=== PATIENT | female | born 1985 | race Caucasian/White ===

== ENCOUNTER → 2017-01-14 | Outpatient (CLI) | payer BC ==
[2017-01-14 10:57] LABS: CH 32.9; CHCM 34.8; HCT 38.3 % (34.0-46.0); HDW 2.55; MCH 32.4 pg (25.0-35.0); MCHC 34.1 g/dL (31.0-37.0); Mean Platelet Volume 8.2; RBC 4.03 m/uL (3.80-5.40); RDW 12.9 % (11.5-15.5); WBC 8.5 k/uL (3.8-10.6)
== END ==
LOC: LABWHC1 09:47
PROVIDERS: ATTEND Obstetrics & Gynecology
DX: Z34.92 Encounter for supervision of normal pregnancy, unspecified, second trimester (principal); Z3A.00 Weeks of gestation of pregnancy not specified
CPT/HCPCS: 36415; 82950; 85027

== ENCOUNTER → 2017-02-11 | Outpatient (CLI) | payer BC ==
--- NOTE | 2017-02-11 12:06 | US ---
EXAMINATION TYPE: US OB anatomy transabd DATE OF EXAM: 02/11/2017 10:40 AM COMPARISON: NONE HISTORY: LGA TECHNIQUE: Transabdominal (TA) EXAM MEASUREMENTS: GESTATIONAL AGE / DATING Physician Established: (32 weeks/4 days) EDC: 04/04/17 Dates by LMP: Unknown Dates by First Scan: Not available Dates by Current Scan for: (31 weeks/3 days) EDC: 04/12/2017 SURVEY IUP: Single PLACENTA: Posterior PREVIA: No previa JEAN PAUL: 10.6 cm Normal CERVICAL LENGTH (transabdominal: norm > 3.0cm): 3.0 cm BIOMETRY PRESENTATION: Vertex BPD: 8.1 cm 32 weeks / 4 days HC: 29.6 cm 32 weeks / 5 days AC: 27.2 cm 31 weeks / 2 days FL: 5.9 cm 31 weeks / 1 days ESTIMATED WEIGHT IN GRAMS: 1768 grams ESTIMATED WEIGHT IN LBS/OZS: 3 lbs. 14 oz. WEIGHT PERCENTAGE BASED ON ESTABLISHED DATE: 12 % HC/AC: 1.1 FL/AC: 21.9 HEART RATE: 143 bpm RHYTHM: Normal JEAN PAUL measures 10.6 ANATOMY SEEN (within normal limits): Cavus Septi Pellucidi Four Chamber Heart Stomach Situs Diaphragm Kidneys (bilateral) Bladder Longitudinal Spine Transverse Spine ANATOMY NOT SEEN: due to position/calcification of bone * Lateral Vent (< 1 cm) cm * Cisterna Magna (< 1.1 cm) cm * Nuchal Fold (< 0.6 cm) cm * Cerebellum (varies with age) cm Choroid Plexus (bilateral) Midline Falx Arms (bilateral) Legs (bilateral) Cord Insert Three Vessel Cord Outflow tracts: LVOT/RVOT Nose / Lips IMPRESSION: Findings compatible with a 31 week 3 day with an EDC of 04/12/2017 Limited assessment of internal anatomy due to advanced gestational age.
== END | disposition home or self-care (01) ==
LOC: RADUSWWP 09:42
PROVIDERS: ATTEND Obstetrics & Gynecology
DX: O36.63X0 Maternal care for excessive fetal growth, third trimester, not applicable or unspecified (principal); Z3A.31 31 weeks gestation of pregnancy
CPT/HCPCS: 76811

== ENCOUNTER 2017-03-15 08:00 | Outpatient (CLI) | payer BC ==
[2017-03-15 08:49] VITALS: BP 131/80; PULSE 76; RESP 20; TEMP 96.2
--- NOTE | 2017-03-16 10:31 | P.MSEPDOC ---
Presenting Problems - Arrival Data Date of Arrival on Unit: 03/15/17 Time of Arrival on Unit: 08:00 Mode of Transport: Ambulatory - Complaint OB-Reason for Admission/Chief Complaint: Possible Onset of Labor Medical History - Information : 3 Para: 2 Term: 2 : 0 Abortions: Spontaneous or Elective: 0 Number of Living Children: 2 - Gestational Age Expected Date of Delivery: 04/04/17 Gestational Age by BINA (wks/days): 37 Weeks and 2 Days Review of Systems - Review of Systems Constitutional: No problems Breast: No problems ENT: No problems Cardiovascular: No problems Respiratory: No problems Gastrointestinal: No problems Genitourinary: No problems Musculoskeletal: No problems Neurological: No problems Skin: No problems Vital Signs - Temperature Temperature: 96.2 F Temperature Source: Skin - Pulse Brachial Pulse Rate: 76 Pulse Assessment Method: Automatic Cuff - Respirations Respiratory Rate: 20 Oxygen Delivery Method: Room Air O2 Sat by Pulse Oximetry: 100 - Blood Pressure Right Arm Blood Pressure: 131/80 Blood Pressure Mean: 97 Blood Pressure Source: Automatic Cuff Medical Screen Scoring (Pre) - Cervical Exam Dilation: 1-3 cm = 1 Effacement: More than 50% = 2 Membranes: Intact - Uterine Contractions Frequency: > 5 minutes apart = 1 Duration: > 40 seconds = 2 - Maternal Vital Signs Maternal Temperature: N/A Maternal Blood Pressure: N/A Signs of Preeclampsia: N/A Maternal Respirations: N/A - Maternal Trauma Maternal Trauma: N/A - Assessment Baseline FHR: 130 Heart Rate - NICHD Category: Category I (Normal) = 0 NST: Reactive - Total Score Total Score (Pre): 6 - Level of Risk Level of Risk: Low (0-5) Physician Notification (Pre) - Physician Notified Physician Notified Date: 03/15/17 Physician Notified Time: 09:04 Physician/Practitioner Notifed:: Dr nichole Spoke With: Dr nichole - Notification Comment Comment: Recheck in 1 hour and if no change may discharge home with instructions Medical Screen Scoring (Post) - Post Treatment Level of Risk Post Treatment Level of Risk: Low (0-5) Disposition - Disposition OB Disposition: Triage, Discharge to home, Written follow up instructions reviewed Discharge Date: 03/15/17 Discharge Time: 09:50 I agree with the RN Medical Screening Exam: Yes Risk & Benefit of care provided described in d/c instruction: Yes Diagnosis: FALSE LABOR AT OR AFTER 37 COMPLETED WEEKS OF GESTATION
== END 2017-03-15 09:50 | disposition home or self-care (01) ==
LOC: FBPOP 08:00
PROVIDERS: ATTEND Obstetrics & Gynecology
DX: O47.1 False labor at or after 37 completed weeks of gestation (principal); Z3A.37 37 weeks gestation of pregnancy
CPT/HCPCS: 59025; 84112; 99213

== ENCOUNTER 2017-03-16 11:26 | Inpatient (IN) | payer BC ==
[2017-03-16 12:26] VITALS: BMI 28.7
[2017-03-16] MEDS ORDERED: TERBUTALINE 1 MG/ML VIAL SQ PRN (12:28)
[2017-03-16] MEDS ORDERED: METHYLERGONOVINE 0.2 MG/ML 1 ML AMP IM PRN (12:28)
[2017-03-16] MEDS ORDERED: OXYTOCIN 10 UNIT/ML 1 ML VIAL IM PRN (12:28)
[2017-03-16] MEDS ORDERED: LIDOCAINE 1% (PF) 10 MG/ML (30 ML SDV) SQ PRN (12:28)
[2017-03-16] MEDS ORDERED: CARBOPROST TROMETHAMINE 250 MCG/ML 1 ML AMP IM PRN (12:28)
[2017-03-16] MEDS ORDERED: LACTATED RINGERS 1,000 ML IV SCH (12:30)
[2017-03-16] MEDS ORDERED: CLINDAMYCIN 900 MG in DEXTROSE 5% IN WATER 50 ML IVPB STA ×2 (12:33)
[2017-03-16 12:50] LABS: Basophils % (A) 0 %; CH 32.7; CHCM 34.9; Eosinophils % (A) 0 %; HCT 42.7 % (34.0-46.0); HDW 2.43; HGB 14.8 gm/dL (11.4-16.0); Luc % (Auto) 1; Lymphocytes # (A) 1.9 k/uL (1.0-4.8); Lymphocytes % (A) 19 %; MCH 32.6 pg (25.0-35.0); MCHC 34.6 g/dL (31.0-37.0); MCV 94.2 fL (80.0-100.0); Mean Platelet Volume 8.1; Monocytes # (A) 0.4 k/uL (0-1.0); Monocytes % (A) 4 %; Neutrophils # (A) 7.2 k/uL (1.3-7.7); Neutrophils % (A) 75 %; RBC 4.54 m/uL (3.80-5.40); RDW 13.2 % (11.5-15.5); WBC 9.6 k/uL (3.8-10.6); WBC (Perox) 9.58
[2017-03-16] MEDS ORDERED: fentaNYL (PF) 50 MCG/ML 5 ML AMP ONE (13:06)
[2017-03-16] MEDS ORDERED: BUPIVACAINE (PF) 0.25% 30 ML VIAL ONE (13:06)
[2017-03-16] MEDS ORDERED: SODIUM CHLORIDE 0.9% 100 ML BAG ONE (13:06)
--- NOTE | 2017-03-16 13:49 | P.HPOB ---
History of Present Illness H&P Date: 03/16/17 Chief Complaint: Rupture membranes, contractions This is a 31-year-old female 3 para 2 with an estimated date of confinement of 04/04/2017, estimated gestational age of 37 and one sevenths weeks, who presents to labor and delivery with complaints of a gush of clear fluid at approximately 9:30 AM this morning with continued gushing after that. She also complains of contractions since yesterday that have become stronger and more regular at approximate 5-6 minutes. care has been with Dr. Hurd and has been uncomplicated. labs: GC/chlamydia-negative HIV-nonreactive Syphilis antibody-nonreactive Random glucose-78 Hepatitis B surface antigen-negative Hemoglobin-13.7 Rubella-immune Blood type-O+ Antibody screen-negative Anatomy scan-within normal limits One hour Glucola-112 Group B streptococcus-unknown, just performed on Friday Obstetrical history: . History of 2 vaginal deliveries at term without complications. Review of Systems Constitutional: Denies chills, Denies fever Cardiovascular: Denies chest pain, Denies shortness of breath Respiratory: Reports as per HPI Gastrointestinal: Reports abdominal pain (Contractions) Genitourinary: Reports , Reports vaginal discharge (Gush of fluid) Neurological: Denies numbness, Denies weakness Psychiatric: Denies anxiety, Denies depression Past Medical History Past Medical History: No Reported History History of Any Multi-Drug Resistant Organisms: None Reported Past Surgical History: No Surgical Hx Reported Past Anesthesia/Blood Transfusion Reactions: No Reported Reaction Past Psychological History: No Psychological Hx Reported Smoking Status: Never smoker Past Alcohol Use History: None Reported Past Drug Use History: None Reported - Past Family History Mother Family Medical History: Hypertension, Seizure Disorder Medications and Allergies Home Medications Medication Instructions Recorded Confirmed Type Pnv with Ca,No.72/Iron/FA [Pnv 1 tab PO DAILY 03/11/17 03/15/17 History Plus Multivit Tab] Allergies Allergy/AdvReac Type Severity Reaction Status Date / Time amoxicillin [From Augmentin] Allergy Rash/Hives Verified 03/15/17 08:31 clavulanic acid Allergy Rash/Hives Verified 03/15/17 08:31 [From Augmentin] Exam Osteopathic Statement: *. No significant issues noted on an osteopathic structural exam other than those noted in the History and Physical/Consult. - Vital Signs Vital signs: Vital Signs Temp Pulse Resp BP 03/16/17 12:15 97.3 F L 76 16 123/79 Intake and Output 03/15/17 03/16/17 03/16/17 22:59 06:59 14:59 Other: Weight 68.946 kg Patient Weight 03/17/17 06:59 Weight 68.946 kg HEENT: Within normal limits Heart: Regular rate and rhythm Lungs: Clear to auscultation bilaterally Abdomen: Cervix: On admission, 4-5 cm/80%/-2 station Amnisure: Positive, clear fluid noted heart tones: Reactive Contractions: Every 3-5 minutes Extremities: Negative Homans Results Result Diagrams: 03/16/17 12:35 Assessment and Plan (1) 37 weeks gestation of Status: Acute (2) Spontaneous rupture of membranes Status: Acute Plan: Admission for active labor. Epidural anesthesia if desired. We'll give antibiotic prophylaxis secondary to unknown group B streptococcus.
--- NOTE | 2017-03-16 16:49 | P.PROBDLV ---
Vaginal Delivery Note - . Vaginal Delivery Note: The patient progressed to complete dilation after epidural anesthesia. She was noted have before back that was also ruptured at approximate 9 cm with clear fluid. She pushed for a short while and infant's head came to a crown and then delivered across an intact perineum followed by the anterior shoulder. Nose and mouth were bulb suctioned at the perineum and with one further push the remainder the infant easily delivered and was placed on mother's abdomen. A viable male infant was noted with scores of 8 at 1 minute and 9 at 5 minutes and weight pending at this time. Placenta delivered shortly thereafter, intact, with a three-vessel cord. Uterus contracted well after oxytocin was given and uterine massage was carried out. Inspection of the perineum revealed no perineal lacerations. Estimated blood loss is approximately 150 mL's. Both mother and are in stable condition.
[2017-03-16] MEDS ORDERED: Acetaminophen-Codeine 300-30mg TAB PO PRN ×2 (17:12)
[2017-03-16] MEDS ORDERED: diphenhydrAMINE 50 MG CAP PO PRN (17:12)
[2017-03-16] MEDS ORDERED: ZOLPIDEM 5 MG TAB PO PRN (17:12)
[2017-03-16] MEDS ORDERED: LANOLIN CREAM 5 GM TUBE TOPICAL PRN (17:12)
[2017-03-16] MEDS ORDERED: WITCH HAZEL 1 EACH MED..PAD TOPICAL PRN (17:12)
[2017-03-16] MEDS ORDERED: diphenhydrAMINE 25 MG CAP PO PRN (17:12)
[2017-03-16] MEDS ORDERED: OXYTOCIN 30 UNITS/500 ML NS 30 UNIT in SALINE 1 500ML.BAG IV SCH (17:12)
[2017-03-16] MEDS ORDERED: SIMETHICONE 80 MG CHEWABLE PO PRN (17:12)
[2017-03-16] MEDS ORDERED: diphenhydrAMINE 50 MG/ML 1 ML VIAL IVP PRN ×2 (17:12)
[2017-03-16] MEDS ORDERED: BENZOCAINE/MENTHOL SPRAY 1 GM/SPRAY AEROSOL TOPICAL PRN (17:12)
[2017-03-16] MEDS ORDERED: ACETAMINOPHEN TAB 325 MG TAB PO PRN (17:12)
[2017-03-16] MEDS ORDERED: HYDROCORTISONE 2.5% RECTAL CREAM 30 GM TUBE RECTAL PRN (17:12)
[2017-03-16] MEDS ORDERED: CLINDAMYCIN 900 MG in DEXTROSE 5% IN WATER 50 ML IVPB SCH ×2 (21:00)
[2017-03-16] MEDS: SENNOSIDES-DOCUSATE SODIUM 1 EACH TAB PO SCH (21:43)
[2017-03-17] MEDS: IBUPROFEN 600 MG TAB PO PRN ×2 (05:54→13:51)
[2017-03-17] MEDS: SENNOSIDES-DOCUSATE SODIUM 1 EACH TAB PO SCH (08:21)
[2017-03-17 08:35] VITALS: BP 104/70; PULSE 76; RESP 18; TEMP 96.9
[2017-03-17 08:48] LABS: Basophils % (A) 0 %; CH 33.7; Eosinophils % (A) 0 %; HCT 40.9 % (34.0-46.0); HDW 2.51; HGB 14.4 gm/dL (11.4-16.0); Luc # (Auto) 0.09; Luc % (Auto) 1; Lymphocytes % (A) 20 %; MCH 32.3 pg (25.0-35.0); MCHC 35.3 g/dL (31.0-37.0); MCV 91.5 fL (80.0-100.0); Mean Platelet Volume 8.5; Monocytes # (A) 0.5 k/uL (0-1.0); Monocytes % (A) 5 %; Neutrophils # (A) 7.6 k/uL (1.3-7.7); Neutrophils % (A) 74 %; RBC 4.47 m/uL (3.80-5.40); WBC 10.2 k/uL (3.8-10.6); WBC (Perox) 9.97
--- NOTE | 2017-03-17 09:11 | P.DS ---
Providers Date of admission: 03/16/17 11:55 Expected date of discharge: 03/17/17 Attending physician: Amarilis Salgado Primary care physician: Stated None Hospital Course: Any seen and evaluated day 1. She is ambulating, voiding, and she is tolerating her diet well. She voices no complaints and requests discharged home today. Prescription for Tylenol 3 and Motrin has been provided. Discharge instructions thoroughly reviewed and all questions are answered. Vital signs are otherwise stable and she is afebrile. Heart regular , lungs clear, extremities without pain. Abdomen soft uterus is firm lochia is reported be light. Assessment day 1. Plan discharged home follow up with me in 6 weeks Patient Condition at Discharge: Good Plan - Discharge Summary New Discharge Prescriptions: Acetaminophen-Codeine 300-30mg [Tylenol #3] 1 tab PO Q4H PRN #30 tablet PRN Reason: Pain Ibuprofen [Motrin] 600 mg PO Q6HR PRN #30 tab PRN Reason: Pain Discharge Medication List Pnv with Ca,No.72/Iron/FA [Pnv Plus Multivit Tab] 1 tab PO DAILY [History] Acetaminophen-Codeine 300-30mg [Tylenol #3] 1 tab PO Q4H PRN #30 tablet [Rx] Ibuprofen [Motrin] 600 mg PO Q6HR PRN #30 tab 03/17/17 [Rx] Follow up Appointment(s)/Referral(s): Bishnu Hurd DO [Doctor of Osteopathic Medicine] - 1 Week Activity/Diet/Wound Care/Special Instructions: Heavy lifting, limit stairs and driving and pelvic rest. If any high temperatures, heavy bleeding, or severe pain call my office Discharge Disposition: HOME SELF-CARE
== END 2017-03-17 16:56 | disposition home or self-care (01) | DRG 775 ==
LOC: FBPOP 11:26 → 4FBP 11:55
PROVIDERS: ADMIT Obstetrics & Gynecology; ATTEND Obstetrics & Gynecology
PROC: 10E0XZZ Delivery of Products of Conception, External Approach (ICD-10-PCS; principal; 2017-03-16)
PROC: 3E0S3NZ Introduction of Analgesics, Hypnotics, Sedatives into Epidural Space, Percutaneous Approach (ICD-10-PCS; 2017-03-16)
DX: O80 Encounter for full-term uncomplicated delivery (principal); Z88.0 Allergy status to penicillin; Z37.0 Single live birth; Z3A.37 37 weeks gestation of pregnancy; Z82.0 Family history of epilepsy and other diseases of the nervous system; Z82.49 Family history of ischemic heart disease and other diseases of the circulatory system; Z88.1 Allergy status to other antibiotic agents
CPT/HCPCS: 59025; 84112; 85025; 88307; 99213

== ENCOUNTER 2020-01-25 10:21 | Outpatient (CLI) | payer BC ==
[2020-01-25 11:44] VITALS: BP 119/72; PULSE 94; RESP 18; TEMP 98.2
--- NOTE | 2020-01-25 18:46 | P.MSEPDOC ---
Presenting Problems - Arrival Data Date of Arrival on Unit: 01/25/20 Time of Arrival on Unit: 10:20 Mode of Transport: Ambulatory - Complaint OB-Reason for Admission/Chief Complaint: Possible Onset of Labor, Rule Out PROM Comment: onset of irreg contx this am 0415 and questionable leaking of fluid at 0600. Medical History - Information : 4 Para: 3 Term: 3 : 0 Abortions: Spontaneous or Elective: 0 Number of Living Children: 3 - Gestational Age Gestational Age by BINA (wks/days): 32 Weeks and 6 Days Review of Systems - Review of Systems Constitutional: No problems Breast: No problems ENT: No problems Cardiovascular: No problems Respiratory: No problems Gastrointestinal: No problems Genitourinary: No problems Musculoskeletal: No problems Neurological: No problems Skin: No problems Comment: sinus infection Vital Signs - Temperature Temperature: 98.2 F Temperature Source: Oral - Pulse Right Brachial Pulse Rate: 94 Pulse Assessment Method: Automatic Cuff - Respirations Respiratory Rate: 18 Oxygen Delivery Method: Room Air O2 Sat by Pulse Oximetry: 100 - Blood Pressure Right Arm Blood Pressure: 119/72 Blood Pressure Mean: 87 Blood Pressure Source: Automatic Cuff Medical Screen Scoring (Pre) - Cervical Exam Dilation: 0 cm = 0 Effacement: More than 50% = 2 Membranes: Intact - Uterine Contractions Frequency: N/A - Maternal Vital Signs Maternal Temperature: N/A Signs of Preeclampsia: N/A Maternal Respirations: N/A - Maternal Trauma Maternal Trauma: N/A - Assessment - Baby A Baseline FHR: 130 Heart Rate - NICHD Category: Category I (Normal) = 0 NST: Reactive Position: N/A - Total Score - Baby A Total Score - Baby A: 2 - Total Score - Baby B Total Score - Baby B: 2 - Total Score - Baby C Total Score - Baby C: 2 - Level of Risk - Baby A Level of Risk - Baby A: Low (0-5) - Level of Risk - Baby B Level of Risk - Baby B: Low (0-5) - Level of Risk - Baby C Level of Risk - Baby C: Low (0-5) Physician Notification (Pre) - Physician Notified Spoke With: jenna Adams Order Received: Yes - Notification Comment Comment: discharge home. f/u with kuester tomorrow. rest tomorrow. no field trip. Medical Screen Scoring (Post) - Cervical Exam Dilation: 0 cm = 0 Effacement: More than 50% = 2 Membranes: Intact - Uterine Contractions Frequency: > 5 minutes apart = 1 Duration: N/A Intensity: N/A - Maternal Vital Signs Maternal Temperature: N/A Maternal Blood Pressure: N/A Signs of Preeclampsia: N/A Maternal Respirations: N/A - Pain Assessment Pain Scale Used: Numeric (1 - 10) Pain Intensity: 0 - Maternal Trauma Maternal Trauma: N/A - Assessment - Baby A Heart Rate: 130 Heart Rate - NICHD Category: Category I (Normal) = 0 NST: Reactive Position: N/A Station: N/A - Total Score Total Score - Baby A: 3 Total Score - Baby B: 3 Total Score - Baby C: 3 - Post Treatment Level of Risk Post Treatment Level of Risk - Baby A: Low (0-5) Post Treatment Level of Risk - Baby B: Low (0-5) Post Treatment Level of Risk - Baby C: Low (0-5) Physician Notification (Post) - Physician Notified Physician Notified Date: 01/25/20 Physician Notified Time: 13:00 Physician/Practitioner Notified:: jenna Spoke With: jenna New Order Received: Yes - Notification Comment Comment: discharge home. to see dr fuchs tomorrow as sched at 1345. no field trip. rest tomorrow. Disposition - Disposition OB Disposition: Discharge to home Discharge Date: 01/25/20 Discharge Time: 13:15 I agree with the RN Medical Screening Exam: Yes Risk & Benefit of care provided described in d/c instruction: Yes Diagnosis: FALSE LABOR BEFORE 37 COMPLETED WEEKS OF GEST, THIRD TRI (Patient presents to labor and delivery with complaints of questionable leaking fluid and some cramping. Evaluation here shows negative for amnio sure and rupture m embranes. Cervix is not dilated and fibronectin is negative. heart tones are category 1. I discussed these findings with the patient felt that she was stable for discharge home to be taken it easy and have a recheck in the office in [address] Martin. Given strict instructions to return she had increased contractions bleeding or leaking fluid.)
== END 2020-01-25 13:15 | disposition home or self-care (01) ==
LOC: FBPOP 10:21
PROVIDERS: ATTEND Obstetrics & Gynecology
DX: O47.03 False labor before 37 completed weeks of gestation, third trimester (principal); Z3A.32 32 weeks gestation of pregnancy
CPT/HCPCS: 59025; 82731; 99213

== ENCOUNTER 2020-03-07 05:53 | Inpatient (IN) | payer BC ==
[2020-03-07] MEDS ORDERED: LIDOCAINE 0.5% (PF) 5 MG/ML (50 ML SDV) SQ PRN (06:35)
[2020-03-07] MEDS ORDERED: TERBUTALINE 1 MG/ML VIAL SQ PRN (06:35)
[2020-03-07] MEDS ORDERED: METHYLERGONOVINE 0.2 MG/ML 1 ML AMP IM PRN (06:35)
[2020-03-07] MEDS ORDERED: OXYTOCIN 10 UNIT/ML 1 ML VIAL IM PRN (06:35)
[2020-03-07] MEDS ORDERED: CARBOPROST TROMETHAMINE 250 MCG/ML 1 ML AMP IM PRN (06:35)
[2020-03-07] MEDS ORDERED: OXYTOCIN 30 UNITS/500 ML NS 30 UNIT in SALINE 1 500ML.BAG IV SCH (06:45)
[2020-03-07] MEDS: LACTATED RINGERS 1,000 ML IV SCH ×2 (07:09→10:25)
[2020-03-07 07:37] LABS: Basophils % (A) 0 %; Eosinophils # (A) 0.1 k/uL (0-0.7); Eosinophils % (A) 1 %; HCT 40.9 % (34.0-46.0); HGB 13.7 gm/dL (11.4-16.0); Lymphocytes # (A) 1.9 k/uL (1.0-4.8); Lymphocytes % (A) 24 %; MCH 32.3 pg (25.0-35.0); MCHC 33.4 g/dL (31.0-37.0); MCV 96.8 fL (80.0-100.0); Mean Platelet Volume 8.7; Monocytes # (A) 0.3 k/uL (0-1.0); Monocytes % (A) 3 %; Neutrophils # (A) 5.7 k/uL (1.3-7.7); Neutrophils % (A) 70 %; Platelet Count 228 k/uL (150-450); RBC 4.23 m/uL (3.80-5.40)
[2020-03-07] MEDS ORDERED: SODIUM CHLORIDE 0.9% 100 ML BAG ONE (10:13)
[2020-03-07] MEDS ORDERED: ROPIVACAINE 5MG/ML 20ML VIAL ONE (10:13)
[2020-03-07] MEDS ORDERED: fentaNYL (PF) 50 MCG/ML 5 ML AMP ONE (10:13)
--- NOTE | 2020-03-07 12:17 | P.PROBDLV ---
Vaginal Delivery Note - . Vaginal Delivery Note: The patient progressed to complete dilation after oxytocin augmentation of labor. Once reaching complete dilation she was found to have a fore bag ruptured spontaneously with clear fluid noted. She did receive an epidural at approximately 4 cm. Once reaching complete, she began pushing. 's a came to a crown. 's head delivered across the perineum followed by the anterior shoulder. Nose and mouth were bulb suctioned at the perineum. With one further push, the remainder the infant easily delivered and was placed on mother's abdomen. Slightly short cord was noted. Cord was clamped and cut and infant was taken to warmer for evaluation. A viable female infant was noted with scores of 9 at 1 minute and 9 at 5 minutes and infant weight of 7 lbs. 8 oz. Placenta delivered shortly thereafter, intact, with a three-vessel cord. Uterus contracted well after oxytocin was given and uterine massage was carried out. Inspection of the perineum revealed no perineal lacerations. Estimated blood loss is approximately 150 mL's. Both mother and are in stable condition.
[2020-03-07] MEDS ORDERED: BENZOCAINE/MENTHOL SPRAY 1 GM/SPRAY AEROSOL TOPICAL PRN (12:22)
[2020-03-07] MEDS ORDERED: SIMETHICONE 80 MG CHEWABLE PO PRN (12:22)
[2020-03-07] MEDS ORDERED: HYDROCORTISONE 2.5% RECTAL CREAM 30 GM TUBE RECTAL PRN (12:22)
[2020-03-07] MEDS ORDERED: diphenhydrAMINE 50 MG/ML 1 ML VIAL IVP PRN ×2 (12:22)
[2020-03-07] MEDS ORDERED: LANOLIN CREAM 5 GM TUBE TOPICAL PRN (12:22)
[2020-03-07] MEDS ORDERED: diphenhydrAMINE 50 MG CAP PO PRN (12:22)
[2020-03-07] MEDS ORDERED: WITCH HAZEL 1 EACH MED..PAD TOPICAL PRN (12:22)
[2020-03-07] MEDS ORDERED: ZOLPIDEM 5 MG TAB PO PRN (12:22)
[2020-03-07] MEDS ORDERED: diphenhydrAMINE 25 MG CAP PO PRN (12:22)
[2020-03-07] MEDS ORDERED: OXYTOCIN 20 UNITS/1000 ML NS 1,000 ML IV SCH (12:30)
[2020-03-07] MEDS: IBUPROFEN 600 MG TAB PO PRN ×2 (13:29→21:15)
[2020-03-07] MEDS: SENNOSIDES-DOCUSATE SODIUM 1 EACH TAB PO SCH (19:55)
[2020-03-08] MEDS: ACETAMINOPHEN TAB 325 MG TAB PO PRN ×2 (01:39→07:32)
[2020-03-08] MEDS: IBUPROFEN 600 MG TAB PO PRN ×3 (04:52→21:16)
[2020-03-08 05:47] LABS: Basophils % (A) 0 %; Eosinophils # (A) 0.1 k/uL (0-0.7); Eosinophils % (A) 1 %; HCT 36.1 % (34.0-46.0); HGB 12.5 gm/dL (11.4-16.0); Lymphocytes # (A) 2.6 k/uL (1.0-4.8); Lymphocytes % (A) 30 %; MCHC 34.6 g/dL (31.0-37.0); MCV 95.2 fL (80.0-100.0); Mean Platelet Volume 9.3; Monocytes # (A) 0.4 k/uL (0-1.0); Monocytes % (A) 5 %; Neutrophils # (A) 5.5 k/uL (1.3-7.7); Neutrophils % (A) 64 %; Platelet Count 207 k/uL (150-450); RBC 3.79 m/uL (3.80-5.40); WBC 8.7 k/uL (3.8-10.6)
[2020-03-08] MEDS: SENNOSIDES-DOCUSATE SODIUM 1 EACH TAB PO SCH ×2 (07:43→21:16)
--- NOTE | 2020-03-08 08:28 | P.DS ---
Providers Date of admission: 03/07/20 06:14 Expected date of discharge: 03/08/20 Attending physician: Bishnu Hurd Primary care physician: Stated None Hospital Course: Any is doing very well day 1. She is ambulating, voiding and tolerating her diet. She voices no complaints and is requesting discharge home today. Vital signs are stable and afebrile. Heart regular, lungs clear, extremities without pain. Abdomen soft uterus is firm and lochia is reported light. Assessment day 1. Plan discharged home follow up with me in 6 weeks. Prescription for breast pump and Motrin are forwarded to pharmacy. All other questions are answered and she is stable for discharge this time. Patient Condition at Discharge: Good Plan - Discharge Summary New Discharge Prescriptions: New Ibuprofen [Motrin] 600 mg PO Q6HR PRN #30 tab PRN Reason: Pain No Action Pnv,Calcium 72/Iron/Folic Acid [Pnv Plus Multivit Tab] 1 tab PO DAILY MDD 1 Discharge Medication List Pnv,Calcium 72/Iron/Folic Acid [Pnv Plus Multivit Tab] 1 tab PO DAILY MDD 1 03/11/17 [History] Ibuprofen [Motrin] 600 mg PO Q6HR PRN #30 tab 03/08/20 [Rx] Follow up Appointment(s)/Referral(s): Bishnu Hurd DO [Doctor of Osteopathic Medicine] - 6 Weeks Activity/Diet/Wound Care/Special Instructions: No heavy lifting, limit stairs and driving, and pelvic rest. If any high temperatures, heavy bleeding, or severe pain call my office Discharge Disposition: HOME SELF-CARE
[2020-03-08] MEDS ORDERED: PRENATAL VIT-IRON-FOLIC ACID 1 EACH CAP PO SCH (09:00)
[2020-03-09] MEDS: IBUPROFEN 600 MG TAB PO PRN ×2 (04:34→11:47)
[2020-03-09 08:27] VITALS: BP 109/75; PULSE 85; RESP 18; TEMP 98.4
[2020-03-09] MEDS: SENNOSIDES-DOCUSATE SODIUM 1 EACH TAB PO SCH (08:29)
== END 2020-03-09 15:15 | disposition home or self-care (01) | DRG 807 ==
LOC: FBPOP 05:53 → 4FBP 06:14
PROVIDERS: ADMIT Obstetrics & Gynecology; ATTEND Obstetrics & Gynecology
PROC: 00HU33Z Insertion of Infusion Device into Spinal Canal, Percutaneous Approach (ICD-10-PCS; principal; 2020-03-07)
PROC: 10E0XZZ Delivery of Products of Conception, External Approach (ICD-10-PCS; principal; 2020-03-07)
PROC: 3E033VJ Introduction of Other Hormone into Peripheral Vein, Percutaneous Approach (ICD-10-PCS; principal; 2020-03-07)
PROC: 3E0R3BZ Introduction of Anesthetic Agent into Spinal Canal, Percutaneous Approach (ICD-10-PCS; principal; 2020-03-07)
DX: O69.3XX0 Labor and delivery complicated by short cord, not applicable or unspecified (principal); Z37.0 Single live birth; Z3A.38 38 weeks gestation of pregnancy; Z79.899 Other long term (current) drug therapy; Z88.0 Allergy status to penicillin
CPT/HCPCS: 59025; 84112; 85025; 86850; 86900; 86901; 99213

== ENCOUNTER 2020-06-11 19:10 | Inpatient (IN) | payer BC ==
[2020-06-11] MEDS ORDERED: SODIUM CHLORIDE 0.9% 1,000 ML IV STA (19:38)
--- NOTE | 2020-06-11 19:42 | ED ---
Abdominal Pain HPI <Snuny Guidry - Last Filed: 06/11/20 21:35> - General Source: patient Mode of arrival: ambulatory Limitations: no limitations <Basilio Renae - Last Filed: 06/11/20 22:09> - General Chief Complaint: Abdominal Pain Stated Complaint: abd pain, fever Time Seen by Provider: 06/11/20 19:27 - History of Present Illness Initial Comments: Patient is a 34-year-old female presenting to emergency Department with a chief complaint abdominal pain. Patient reports initially she developed some. Umbilical pain approximately 3 days ago which only lasted for about an hour and it resolved. Patient states she was completely symptomatic until today. Patient reports today she developed similar type pain that starts in upper umbilical region and radiates across the abdomen. She also reports some radiation going to the right lower quadrant region. Patient did report a fever earlier today at home. States she does have decreased appetite. States the pain was initially sharp in nature and only lasted for a short period of time. States the pain is still there although at a lower intensity. States she also attempted to urinate when the pain initially developed and she had some obstr uctive urinary symptoms for several seconds but then she was urinating without an issue. Denies any hematuria, hematochezia or melena. States she is currently nursing gave 3 months ago. Denies any back pain flank pain. Denies any history of kidney stones. Denies any previous abdominal surgeries. Does report strong family history of appendicitis and renal stones. Denies any chest pain shortness of breath. (Basilio Renae) - Related Data Home Medications Medication Instructions Recorded Confirmed Pnv,Calcium 72/Iron/Folic Acid 1 tab PO DAILY MDD 1 03/11/17 03/07/20 [Pnv Plus Multivit Tab] Previous Rx's Medication Instructions Recorded Ibuprofen [Motrin] 600 mg PO Q6HR PRN #30 tab 03/08/20 Allergies Allergy/AdvReac Type Severity Reaction Status Date / Time amoxicillin [From Augmentin] Allergy Rash/Hives Verified 06/11/20 19:17 clavulanic acid Allergy Rash/Hives Verified 06/11/20 19:17 [From Augmentin] Review of Systems ROS Other: All systems not noted in ROS Statement are negative. <Sunny Guidry - Last Filed: 06/11/20 21:35> ROS Other: All systems not noted in ROS Statement are negative. <Basilio Renae - Last Filed: 06/11/20 22:09> ROS Statement: Those systems with pertinent positive or pertinent negative responses have been documented in the HPI. Past Medical History Past Medical History: No Reported History History of Any Multi-Drug Resistant Organisms: None Reported Past Surgical History: No Surgical Hx Reported Past Anesthesia/Blood Transfusion Reactions: No Reported Reaction Past Psychological History: No Psychological Hx Reported Past Alcohol Use History: None Reported Past Drug Use History: None Reported - Past Family History Mother Family Medical History: Hypertension, Seizure Disorder <Basilio Renae - Last Filed: 06/11/20 22:09> General Exam Limitations: no limitations General appearance: alert, in no apparent distress Head exam: Present: atraumatic, normocephalic, normal inspection Eye exam: Present: normal appearance, PERRL, EOMI Pupils: Present: normal accommodation ENT exam: Present: normal exam, normal oropharynx, mucous membranes moist, TM's normal bilaterally, normal external ear exam Neck exam: Present: normal inspection, full ROM. Absent: tenderness Respiratory exam: Present: normal lung sounds bilaterally. Absent: respiratory distress, wheezes, rales Cardiovascular Exam: Present: regular rate, normal rhythm, normal heart sounds GI/Abdominal exam: Present: soft, tenderness (Periumbilical tenderness, mild. R ight lower quadrant tenderness. Positive McBurney point. Positive psoas, negative obturator.), normal bowel sounds. Absent: distended, guarding, rebound, rigid Extremities exam: Present: normal inspection, full ROM, normal capillary refill. Absent: tenderness Back exam: Present: normal inspection, full ROM. Absent: tenderness, CVA tenderness (R), CVA tenderness (L), muscle spasm Neurological exam: Present: alert, oriented X3, normal gait Psychiatric exam: Present: normal affect, normal mood Skin exam: Present: warm, dry, intact, normal color <Basilio Renae - Last Filed: 06/11/20 22:09> Course <Sunny Guidry - Last Filed: 06/11/20 21:35> Vital Signs 06/11/20 06/11/20 19:14 19:54 Temperature 99 F 100.2 F H Pulse Rate 119 H Respiratory 20 Rate Blood Pressure 160/99 O2 Sat by Pulse 100 Oximetry - Reevaluation(s) Reevaluation #1: 06/11/20 21:35 Patient reevaluated and reexamined by myself, Dr. Guidry. Patient resting comfortably in bed. Patient states onset of symptoms was around 9 this morning and has progressed since that time. Patient does have moderate tenderness right lower quadrant. CT reviewed. Case discussed with Dr. Henderson who will admit covering for surgical call. She did come evaluate the patient. I do agree with PA findings. This includes diagnostic interpretation and treatment plan. (Sunny Guidry) Medical Decision Making - Lab Data Result diagrams: 06/11/20 19:53 06/11/20 19:53 <Sunny Guidry - Last Filed: 06/11/20 21:35> - Lab Data Result diagrams: 06/11/20 19:53 06/11/20 19:53 <Basilio Renae - Last Filed: 06/11/20 22:09> - Medical Decision Making Patient is a 34-year-old female presenting to the emergency department with a chief complaint of abdominal pain. On exam she has positive McBurney point tenderness. CBC revealed leukocytosis of 12.[address] of abdomen and pelvis reveals acute appendicitis. Dr. Kumari consulted and she will admit the pat ient. Case discussed with Dr. Guidry. Antibiotics, nothing by mouth, fluids. (Basilio Renae) - Lab Data Lab Results 06/11/20 06/11/20 06/11/20 Range/Units 19:53 19:53 19:53 WBC 12.5 H (3.8-10.6) k/uL RBC 4.60 (3.80-5.40) m/uL Hgb 14.8 (11.4-16.0) gm/dL Hct 43.4 (34.0-46.0) % MCV 94.4 (80.0-100.0) fL MCH 32.3 (25.0-35.0) pg MCHC 34.2 (31.0-37.0) g/dL RDW 12.1 (11.5-15.5) % Plt Count 246 (150-450) k/uL Neutrophils % 83 % Lymphocytes % 13 % Monocytes % 3 % Eosinophils % 0 % Basophils % 0 % Neutrophils # 10.3 H (1.3-7.7) k/uL Lymphocytes # 1.6 (1.0-4.8) k/uL Monocytes # 0.4 (0-1.0) k/uL Eosinophils # 0.1 (0-0.7) k/uL Basophils # 0.0 (0-0.2) k/uL Sodium (137-145) mmol/L Potassium (3.5-5.1) mmol/L Chloride (98-107) mmol/L Carbon Dioxide (22-30) mmol/L Anion Gap mmol/L BUN (7-17) mg/dL Creatinine (0.52-1.04) mg/dL Est GFR (CKD-EPI)AfAm (>60 ml/min/1.73 sqM) Est GFR (CKD-EPI)NonAf (>60 ml/min/1.73 sqM) Glucose (74-99) mg/dL Calcium (8.4-10.2) mg/dL Total Bilirubin (0.2-1.3) mg/dL AST (14-36) U/L ALT (4-34) U/L Alkaline Phosphatase (38-126) U/L Total Protein (6.3-8.2) g/dL Albumin (3.5-5.0) g/dL Lipase (23-300) U/L Urine Color Yellow Urine Appearance Clear (Clear) Urine pH 5.0 (5.0-8.0) Ur Specific Wiseman 1.020 (1.001-1.035) Urine Protein Negative (Negative) Urine Glucose (UA) Negative (Negative) Urine Ketones Negative (Negative) Urine Blood Negative (Negative) Urine Nitrite Negative (Negative) Urine Bilirubin Negative (Negative) Urine Urobilinogen <2.0 (<2.0) mg/dL Ur Leukocyte Esterase Small H (Negative) Urine RBC <1 (0-5) /hpf Urine WBC 3 (0-5) /hpf Ur Squamous Epith Cells 1 (0-4) /hpf Urine Mucus Few H (None) /hpf Urine HCG, Qual Not Detected (Not Detectd) 06/11/20 Range/Units 19:53 WBC (3.8-10.6) k/uL RBC (3.80-5.40) m/uL Hgb (11.4-16.0) gm/dL Hct (34.0-46.0) % MCV (80.0-100.0) fL MCH (25.0-35.0) pg MCHC (31.0-37.0) g/dL RDW (11.5-15.5) % Plt Count (150-450) k/uL Neutrophils % % Lymphocytes % % Monocytes % % Eosinophils % % Basophils % % Neutrophils # (1.3-7.7) k/uL Lymphocytes # (1.0-4.8) k/uL Monocytes # (0-1.0) k/uL Eosinophils # (0-0.7) k/uL Basophils # (0-0.2) k/uL Sodium 138 (137-145) mmol/L Potassium 4.0 (3.5-5.1) mmol/L Chloride 102 (98-107) mmol/L Carbon Dioxide 25 (22-30) mmol/L Anion Gap 11 mmol/L BUN 18 H (7-17) mg/dL Creatinine 0.50 L (0.52-1.04) mg/dL Est GFR (CKD-EPI)AfAm >90 (>60 ml/min/1.73 sqM) Est GFR (CKD-EPI)NonAf >90 (>60 ml/min/1.73 sqM) Glucose 106 H (74-99) mg/dL Calcium 10.0 (8.4-10.2) mg/dL Total Bilirubin 1.0 (0.2-1.3) mg/dL AST 26 (14-36) U/L ALT 23 (4-34) U/L Alkaline Phosphatase 81 (38-126) U/L Total Protein 8.0 (6.3-8.2) g/dL Albumin 5.0 (3.5-5.0) g/dL Lipase 93 (23-300) U/L Urine Color Urine Appearance (Clear) Urine pH (5.0-8.0) Ur Specific Wiseman (1.001-1.035) Urine Protein (Negative) Urine Glucose (UA) (Negative) Urine Ketones (Negative) Urine Blood (Negative) Urine Nitrite (Negative) Urine Bilirubin (Negative) Urine Urobilinogen (<2.0) mg/dL Ur Leukocyte Esterase (Negative) Urine RBC (0-5) /hpf Urine WBC (0-5) /hpf Ur Squamous Epith Cells (0-4) /hpf Urine Mucus (None) /hpf Urine HCG, Qual (Not Detectd) Disposition <Sunny Guidry - Last Filed: 06/11/20 21:35> Is patient prescribed a controlled substance at d/c from ED?: No Time of Disposition: 22:09 <Basilio Renae - Last Filed: 06/11/20 22:09> Clinical Impression: Acute appendicitis Disposition: ADMITTED IP TO THIS HOSP Condition: Good Additional Instructions: Patient will be admitted Referrals: Doug Webber DO [Primary Care Provider] - 1-2 days
[2020-06-11 20:05] LABS: Basophils % (A) 0 %; Eosinophils # (A) 0.1 k/uL (0-0.7); Eosinophils % (A) 0 %; HCT 43.4 % (34.0-46.0); HGB 14.8 gm/dL (11.4-16.0); Lymphocytes # (A) 1.6 k/uL (1.0-4.8); Lymphocytes % (A) 13 %; MCH 32.3 pg (25.0-35.0); MCHC 34.2 g/dL (31.0-37.0); MCV 94.4 fL (80.0-100.0); Mean Platelet Volume 8.1; Monocytes # (A) 0.4 k/uL (0-1.0); Monocytes % (A) 3 %; Neutrophils # (A) 10.3 k/uL (1.3-7.7); Neutrophils % (A) 83 %; Platelet Count 246 k/uL (150-450); RDW 12.1 % (11.5-15.5); WBC 12.5 k/uL (3.8-10.6)
[2020-06-11 20:06] LABS: Appearance,Urine Clear (Clear); Bilirubin,Urine Negative (Negative); Blood,Urine Negative (Negative); Color,Urine Yellow; Glucose,Urine (UA) Negative (Negative); Ketones,Urine Negative (Negative); Leukocyte Esterase,Urine Small (Negative); Mucus,Urine Few /hpf; Nitrite,Urine Negative (Negative); Protein,Urine Negative (Negative); RBC,Urine <1 /hpf (0-5); Squamous Epithelial Cell,Urine 1 /hpf (0-4); Urobilinogen,Urine <2.0 mg/dL (<2.0); WBC,Urine 3 /hpf (0-5)
[2020-06-11 20:15] LABS: ALT 23 U/L (4-34); AST 26 U/L (14-36); African American GFR (CKD) >90 (>60 ml/min/1.73 sqM); Alkaline Phosphatase 81 U/L (38-126); Anion Gap 11 mmol/L; Blood Urea Nitrogen 18 mg/dL (7-17); Carbon Dioxide 25 mmol/L (22-30); Chloride 102 mmol/L (98-107); Glucose 106 mg/dL (74-99); Non-African American GFR(CKD) >90 (>60 ml/min/1.73 sqM); Sodium 138 mmol/L (137-145)
--- NOTE | 2020-06-11 21:06 | CT ---
EXAMINATION TYPE: CT abdomen pelvis w con DATE OF EXAM: 06/11/2020 COMPARISON: None HISTORY: Lower abdominal pain and fever with nausea. CT DLP: 591.8 mGycm Automated exposure control for dose reduction was used. CONTRAST: Performed with IV Contrast, patient injected with 100 mL of Isovue 300. Lung bases are clear. There is no pleural effusion. Heart size is normal. Liver spleen pancreas gallbladder appear normal. Bile ducts are not dilated. Stomach appears normal. There is no adrenal mass. Kidneys show satisfactory contrast opacification. There is no hydronephrosi s. Ureters are not dilated. Delayed images show normal renal excretion. There is no retroperitoneal a denopathy. There is 1 cm cortical cyst posterior right kidney. Bladder distends smoothly. There is no inguinal hernia. There is small amount of free fluid in the pe lvis. Uterus is anteverted. Lumbar vertebra have normal spacing and alignment. Posterior elements are intact. Facet joints appear intact. There is no mesenteric edema. There is no ascites or free air. There is no evidence of a bowel obstru ction. There is tubular structure in the pelvis that appears to be a thickened appendix with minimal surroun ding inflammation. Appendix measures 9 mm. Appendix is posterior in the pelvis. IMPRESSION: Mildly dilated appendix with minimal subtle inflammatory surrounding changes. Minimal fluid in the pe lvis also seen. This is suggestive of acute appendicitis.
[2020-06-11] MEDS ORDERED: LEVOFLOXACIN 750MG-D5W PMX 750 MG in DEXTROSE/WATER 1 150ML.BAG IVPB STA (21:34)
[2020-06-11] MEDS ORDERED: GABAPENTIN 300 MG CAP PO STA (21:50)
[2020-06-11] MEDS ORDERED: ACETAMINOPHEN TAB 500 MG TAB PO STA (21:50)
[2020-06-11] MEDS ORDERED: HEPARIN SODIUM,PORCINE 5,000 UNIT/ML 1 ML VIAL SQ STA (21:50)
[2020-06-11] MEDS ORDERED: TAMSULOSIN 0.4 MG CAP.ER.24H PO STA (21:50)
--- NOTE | 2020-06-11 21:56 | P.GSHP ---
History of Present Illness H&P Date: 06/11/20 CHIEF COMPLAINT: Right lower quadrant abdominal pain with appendicitis for over 12 hours HISTORY OF PRESENT ILLNESS: The patient is a previously healthy 34-year-old female who presents with over 12 are history of periumbilical with right lower quadrant abdominal pain that is crampy dull ache in nature. No reports of prior abdominal pain. She states the intensity of the pain is moderate. Her presented with CT abdomen and pelvis consistent with dilated appendix suspicious for appendicitis hence general surgery admission. PAST MEDICAL HISTORY: See list and reviewed PAST SURGICAL HISTORY: See list and reviewed CURRENT MEDICATIONS: See list and reviewed ALLERGIES: See list and reviewed SOCIAL HISTORY: See list and reviewed FAMILY HISTORY: No Crohns disease and ulcerative colitis. REVIEW OF ORGAN SYSTEMS: CONSTITUTIONAL: Present fever, no chills. Denies recent weight loss. HEENT: Denies any trouble with vision, hearing or nosebleeds. No difficulty swallowing. LYMPHATIC: The patient denies any lumps and bumps around the neck. ENDOCRINE: Denies any thyroid disorders. Denies any blood sugar glucose intolerance. RESPIRATORY: Denies shortness of breath including chronic cough. CARDIOVASCULAR: Denies history of chest pain with exertion. GASTROINTESTINAL: Denies regurgitation of bile at night as well as intermittent nausea. No blood in stools. GENITOURINARY: Denies any blood in urine or increased urinary frequency. MUSCULOSKELETAL: Denies current joint arthritis. NEUROLOGIC: Denies any numbness or tingling along the distal extremities. No seizure disorders or headaches. PSYCHIATRIC: Denies any depression or suicidal ideation. HEMATOLOGIC: Denies any abnormal bleeding or bruising. PHYSICAL EXAMINATION: GENERAL: A 34-year-old female in no acute distress. Pleasant. HEENT: No sclera icterus. Extraocular movements grossly intact. Moist buccal mucosa. Head is atraumatic, normocephalic. Hears conversational speech. No nasal drainage. NECK: Supple without lymphadenopathy. No JV distention. CHEST: Non-labored respirations and equal bilateral excursions. CARDIOVASCULAR: Regular rate and rhythm. Palpable 2+ radial pulses. ABDOMEN: Soft, tender at the right lower quadrant without guarding. MUSCULOSKELETAL: No clubbing, cyanosis or edema. NEUROLOGIC: No focal or lateralizing signs. PSYCH: Appropriate affect. Alert and oriented to person, place and time. SKIN: Well perfused. Good skin turgor. LABS: Reviewed. White blood cell count elevated over 12,000. STUDIES: CT of the abdomen and pelvis independently reviewed with findings consistent with appendicitis within the deep pelvis ASSESSMENT: 1. Right lower quadrant pain. 2. Appendicitis 3. Leukocytosis. PLAN: 1. I have discussed benefits and risks of laparoscopic appendectomy. 2. Bilateral SCDs. 3. Antibiotics for leukocytosis Thank you very much for allowing me to participate in the care of your patient. Past Medical History Past Medical History: No Reported History History of Any Multi-Drug Resistant Organisms: None Reported Past Surgical History: No Surgical Hx Reported Past Anesthesia/Blood Transfusion Reactions: No Reported Reaction Past Psychological History: No Psychological Hx Reported Past Alcohol Use History: None Reported Past Drug Use History: None Reported - Past Family History Mother Family Medical History: Hypertension, Seizure Disorder Medications and Allergies Home Medications Medication Instructions Recorded Confirmed Type Pnv,Calcium 72/Iron/Folic Acid 1 tab PO DAILY MDD 1 03/11/17 03/07/20 History [Pnv Plus Multivit Tab] Ibuprofen [Motrin] 600 mg PO Q6HR PRN #30 tab 03/08/20 Rx Allergies Allergy/AdvReac Type Severity Reaction Status Date / Time amoxicillin [From Augmentin] Allergy Rash/Hives Verified 06/11/20 19:17 clavulanic acid Allergy Rash/Hives Verified 06/11/20 19:17 [From Augmentin] Surgical - Exam Vital Signs Temp Pulse Resp BP Pulse Ox 99 F 119 H 20 160/99 100 06/11/20 19:14 06/11/20 19:14 06/11/20 19:14 06/11/20 19:14 06/11/20 19:14 Results - Labs 06/11/20 19:53 06/11/20 19:53 Abnormal Lab Results - Last 24 Hours (Table) 06/11/20 06/11/20 06/11/20 Range/Units 19:53 19:53 19:53 WBC 12.5 H (3.8-10.6) k/uL Neutrophils # 10.3 H (1.3-7.7) k/uL BUN 18 H (7-17) mg/dL Creatinine 0.50 L (0.52-1.04) mg/dL Glucose 106 H (74-99) mg/dL Ur Leukocyte Esterase Small H (Negative) Urine Mucus Few H (None) /hpf Diabetes panel 06/11/20 Range/Units 19:53 Sodium 138 (137-145) mmol/L Potassium 4.0 (3.5-5.1) mmol/L Chloride 102 (98-107) mmol/L Carbon Dioxide 25 (22-30) mmol/L BUN 18 H (7-17) mg/dL Creatinine 0.50 L (0.52-1.04) mg/dL Glucose 106 H (74-99) mg/dL Calcium 10.0 (8.4-10.2) mg/dL AST 26 (14-36) U/L ALT 23 (4-34) U/L Alkaline Phosphatase 81 (38-126) U/L Total Protein 8.0 (6.3-8.2) g/dL Albumin 5.0 (3.5-5.0) g/dL Calcium panel 06/11/20 Range/Units 19:53 Calcium 10.0 (8.4-10.2) mg/dL Albumin 5.0 (3.5-5.0) g/dL Pituitary panel 06/11/20 Range/Units 19:53 Sodium 138 (137-145) mmol/L Potassium 4.0 (3.5-5.1) mmol/L Chloride 102 (98-107) mmol/L Carbon Dioxide 25 (22-30) mmol/L BUN 18 H (7-17) mg/dL Creatinine 0.50 L (0.52-1.04) mg/dL Glucose 106 H (74-99) mg/dL Calcium 10.0 (8.4-10.2) mg/dL Adrenal panel 06/11/20 Range/Units 19:53 Sodium 138 (137-145) mmol/L Potassium 4.0 (3.5-5.1) mmol/L Chloride 102 (98-107) mmol/L Carbon Dioxide 25 (22-30) mmol/L BUN 18 H (7-17) mg/dL Creatinine 0.50 L (0.52-1.04) mg/dL Glucose 106 H (74-99) mg/dL Calcium 10.0 (8.4-10.2) mg/dL Total Bilirubin 1.0 (0.2-1.3) mg/dL AST 26 (14-36) U/L ALT 23 (4-34) U/L Alkaline Phosphatase 81 (38-126) U/L Total Protein 8.0 (6.3-8.2) g/dL Albumin 5.0 (3.5-5.0) g/dL Assessment and Plan (1) Appendicitis Current Visit: Yes Status: Acute Code(s): K37 - UNSPECIFIED APPENDICITIS SNOMED Code(s): 84896678
[2020-06-11] MEDS ORDERED: NALOXONE 0.4 MG/ML 1 ML VIAL IV PRN (22:06)
[2020-06-12] MEDS: KETOROLAC 30 MG/ML 1 ML VIAL IVP SCH ×2 (00:12→06:23)
[2020-06-12] MEDS: SODIUM CHLORIDE 0.9% 1,000 ML IV SCH ×4 (00:18→14:17)
[2020-06-12] MEDS: metroNIDAZOLE-NS PMX 500 MG in SALINE 1 100ML.BAG IVPB SCH ×3 (00:55→16:54)
[2020-06-12] MEDS ORDERED: LEVOFLOXACIN 750MG-D5W PMX 750 MG in DEXTROSE/WATER 1 150ML.BAG IVPB SCH ×2 (06:00→22:00)
[2020-06-12] MEDS ORDERED: ONDANSETRON 4 MG/2 ML VIAL IVP PRN (07:20)
[2020-06-12] MEDS ORDERED: SCOPOLAMINE 1.5MG/72HR PATCH TRANSDERM STA (07:27)
[2020-06-12] MEDS ORDERED: SODIUM CHLORIDE 0.9% 1,000 ML IV ONE (07:57)
[2020-06-12] MEDS ORDERED: HEPARIN SODIUM,PORCINE 5,000 UNIT/ML 1 ML VIAL SQ STA (07:58)
[2020-06-12] MEDS ORDERED: MAGNESIUM SULFATE-D5W PMX 1 GM in DEXTROSE/WATER 1 100ML.BAG IVPB ONE (08:15)
[2020-06-12] MEDS ORDERED: HEPARIN SODIUM,PORCINE 5,000 UNIT/ML 1 ML VIAL ONE (09:06)
[2020-06-12 09:10] LABS: Basophils % (A) 0 %; Eosinophils # (A) 0.1 k/uL (0-0.7); Eosinophils % (A) 1 %; Lymphocytes # (A) 1.4 k/uL (1.0-4.8); Lymphocytes % (A) 16 %; MCH 31.9 pg (25.0-35.0); MCHC 33.3 g/dL (31.0-37.0); MCV 95.7 fL (80.0-100.0); Mean Platelet Volume 7.9; Monocytes # (A) 0.4 k/uL (0-1.0); Monocytes % (A) 4 %; Neutrophils # (A) 6.8 k/uL (1.3-7.7); Neutrophils % (A) 77 %; Platelet Count 188 k/uL (150-450); RBC 4.07 m/uL (3.80-5.40); WBC 8.9 k/uL (3.8-10.6)
[2020-06-12 09:18] LABS: African American GFR (CKD) >90 (>60 ml/min/1.73 sqM); Anion Gap 7 mmol/L; Blood Urea Nitrogen 23 mg/dL (7-17); Calcium 8.6 mg/dL (8.4-10.2); Carbon Dioxide 22 mmol/L (22-30); Chloride 108 mmol/L (98-107); Glucose 105 mg/dL (74-99); Magnesium 1.9 mg/dL (1.6-2.3); Non-African American GFR(CKD) >90 (>60 ml/min/1.73 sqM); Sodium 137 mmol/L (137-145)
[2020-06-12] MEDS ORDERED: GLYCOPYRROLATE 0.2 MG/ML 2 ML VIAL ONE (09:41)
[2020-06-12] MEDS ORDERED: fentaNYL (PF) 50 MCG/ML 2 ML AMP ONE (09:41)
[2020-06-12] MEDS ORDERED: NEOSTIGMINE 1 MG/ML 10 ML VIAL ONE (09:41)
[2020-06-12] MEDS ORDERED: PROPOFOL 10 MG/ML 20 ML VIAL IV ONE (09:41)
[2020-06-12] MEDS ORDERED: ROCURONIUM BROMIDE 10 MG/ML 5 ML VIAL IV ONE (09:41)
[2020-06-12] MEDS ORDERED: MIDAZOLAM 2 MG/2 ML VIAL ONE (09:41)
[2020-06-12] MEDS ORDERED: LIDOCAINE 1%-EPI 1:100,000 20 ML VIAL SQ ONE (10:15)
[2020-06-12] MEDS ORDERED: LACTATED RINGERS 1,000 ML IV ONE (11:11)
[2020-06-12] MEDS ORDERED: DEXAMETHASONE SOD PHOSPHATE 10 MG/ML 1 ML VIAL IV ONE (11:37)
[2020-06-12] MEDS ORDERED: METOCLOPRAMIDE 5 MG/ML 2 ML VIAL IVP PRN (11:41)
[2020-06-12] MEDS ORDERED: PROMETHAZINE 25 MG TAB PO PRN (11:41)
--- NOTE | 2020-06-12 12:00 | P.OP ---
Date of Procedure: 06/12/20 Description of Procedure: SURGEON: ZULLY WATKINS MD Preoperative Diagnosis: 1. Acute appendicitis 2. Chronic headaches 3. Pre-existing nausea Postoperative Diagnosis: 1. Acute appendicitis with periappendicitis without rupture 2. Chronic headaches 3. Pre-existing nausea Procedure(s) Performed: 1. Robotic-assisted daVinci Xi laparoscopic appendectomy Anesthesia: GETA, local Surgeon: Zully Watkins Estimated Blood Loss (ml): 30 Pathology: other (appendix), peritoneal fluid Condition: stable Disposition: floor Operative Findings: 1. Acute appendicitis without rupture with periappendicitis. 2. Terminal ileum unremarkable 3. Cecum unremarkable 4. No bilateral inguinal hernias 5. Appendix within deep pelvis posterior to the uterus and medial to the right ovary 6. Bilateral ovaries within normal limits including fallopian tubes 7. Turbid peritoneal fluid completely dried and aspirated from pelvis INDICATIONS: The patient is a 34-year-old female who presented with acute appendicitis. Prior to surgery, patient had pre-existing nausea. Additionally, upon discussion with the patient's mother, patient recently gave to her fourth child almost 3 months ago with complications. Benefits and risks of surgery, including but not limited to infection, bleeding was discussed. Informed consent was obtained. All questions of the patient and family were answered. DESCRIPTION: Antiemetics including scopolamine patch, IV fluids, Zofran were administered. The patient was transferred to the operating room and placed in supine position. The abdomen was then prepped and draped in standard sterile fashion as Ioban was placed along the abdomen to minimize any contamination of skin floor. After a timeout protocol was performed, ocal anesthetic was infiltrated to all wounds for postop analgesia. Attention was then brought to the left upper quadrant whereby a 0 degree 5 mm laparoscopic trocar entry was performed. The abdominal wall was moderately elastic with entry into the abdominal cavity. The insufflating tip was activated for entry into the abdomen. The abdominal cavity was entered and insufflated to 15 mmHg pressure, which was tolerated well. Diagnostic laparoscopy demonstrated superficial omental hematoma 5-mm along the left upper quadrant. Next two robotic 8-mm trocars were placed along the upper abdomen, right upper quadrant including epigastrium under direct visualization. A 12 mm port was placed along the left upper quadrant to replace the 5 mm port. Ports were placed 8 cm apart from each other including 15-20 cm away from the target anatomy of the right pelvis. The patient was then placed in Trendelenburg position, at least 10 down. The robotic da Jordan XI system was primed and docked from the left side of the patient. Using atraumatic graspers and vessel sealer, the robotic system was docked and primed as described. Instruments were interchanged by the chemistry research assistant including graspers, robotic stapler and vessel sealer. Next, attention was brought to identify the cecum. A systematic view within the abdominal cavity was started with the small bowel which was unremarkable. The base of the cecum was unremarkable. No inguinal hernias were identified. The ovaries were unremarkable. The fallopian tubes were unremarkable. The appendix tip was dilated with moderate periappendicitis and adherent to the dome of the uterus and medial to the ovary. With careful blunt dissection, the appendix was freed from the surrounding tissues without injury to the ovary or uterus. No evidence of perforation was found. The tip appendix was dilated and inflamed.The body of the appendix was moderately dilated with moderate periappendicitis. The peritoneal fluid was turbid. The mesoappendix was controlled using vessel sealer to prepare for resection of the appendix. A 45 mm blue robotic staple load was fired along the base of the appendix. Mild arterial bleeding was controlled using Bovie cautery. Attention was brought to the rest of the abdomen and pelvis. The turbid peritoneal fluid was aspirated and dried from the pelvis. Attention was brought to the left upper quadrant to investigate the omental hematoma. The transverse mesocolon was reflected towards the upper abdomen. Blood was found tracking along the descending colon and dried. Along the retroperitoneum, a contained hematoma was identified. No active bleeding was found. The colon and small bowel was investigated at the left upper quadrant without any findings of bile staining, enteric content or fecal content. Final endoscopic images obtained confirming dried pelvis including abdomen. The robot was undocked. I re-scrubbed into the case. The specimen was removed from the abdominal cavity with an Endo Catch bag through the 12 mm trocar at the left upper quadrant. All instruments and pneumoperitoneum were evacuated from the abdominal cavity. All incisions had mild oozing and controlled upon closure. All incisions were also cleansed with diluted hydrogen peroxide. The incisions were closed with 4- 0 Monocryl. Exofin glue was applied to the rest of the skin incisions. Per discussion with anesthesia, patient also had moderate drainage along the posterior oropharynx including oozing along the oropharynx also suctioned. Upon extubation, the patient had emesis. The patient was transferred to the postanesthesia care unit. She still reported nausea. Her pain was controlled. Sensation along the bilateral lower extremities were intact including motor sensation. Intraoperative findings were discussed and the patient's mother regarding severity of nausea including propensity to bleed. Hospitalization beyond overnight was described.
[2020-06-12] MEDS ORDERED: HYDROmorphone 1 MG/ML 1 ML SYRINGE IVP PRN (12:14)
[2020-06-12] MEDS ORDERED: ONDANSETRON 4 MG/2 ML VIAL IVP ONE (12:15)
[2020-06-12] MEDS ORDERED: SCOPOLAMINE 1.5MG/72HR PATCH TRANSDERM ONE (12:17)
[2020-06-12] MEDS: ACETAMINOPHEN TAB 500 MG TAB PO SCH ×3 (13:05→18:50)
[2020-06-12 20:17] VITALS: RESP 16
--- NOTE | 2020-06-12 21:11 | P.PN ---
Progress Note - Text Progress Note Date: 06/12/20 Patient seen and evaluated this afternoon. She reports nausea have improved since surgery. She complains of appropriate right-sided abdominal pain along her incisions. No reports of back pain. She is tolerating Jell-O. Intraoperative findings described in detail including appendicitis without rupture as well as increased oozing during surgery where Toradol and heparin is contraindicated at this time. She also reports having a 3-month-old Patient's birthday is tomorrow. Should her nausea improve and hemoglobin be stable, likely discharged within 24-48 hours.
[2020-06-13] MEDS: ACETAMINOPHEN TAB 500 MG TAB PO SCH ×4 (00:21→17:47)
[2020-06-13] MEDS: metroNIDAZOLE-NS PMX 500 MG in SALINE 1 100ML.BAG IVPB SCH ×3 (00:24→16:49)
[2020-06-13 06:53] LABS: Basophils % (A) 0 %; Eosinophils % (A) 0 %; HCT 34.5 % (34.0-46.0); HGB 11.4 gm/dL (11.4-16.0); Lymphocytes # (A) 1.4 k/uL (1.0-4.8); Lymphocytes % (A) 15 %; MCH 31.2 pg (25.0-35.0); MCV 94.5 fL (80.0-100.0); Mean Platelet Volume 8.2; Monocytes # (A) 0.4 k/uL (0-1.0); Monocytes % (A) 4 %; Neutrophils # (A) 7.2 k/uL (1.3-7.7); Neutrophils % (A) 80 %; Platelet Count 206 k/uL (150-450); RBC 3.65 m/uL (3.80-5.40); RDW 12.1 % (11.5-15.5); WBC 9.1 k/uL (3.8-10.6)
[2020-06-13 07:06] LABS: ALT 15 U/L (4-34); AST 19 U/L (14-36); African American GFR (CKD) >90 (>60 ml/min/1.73 sqM); Albumin 3.4 g/dL (3.5-5.0); Alkaline Phosphatase 55 U/L (38-126); Anion Gap 6 mmol/L; Blood Urea Nitrogen 12 mg/dL (7-17); Calcium 8.6 mg/dL (8.4-10.2); Carbon Dioxide 20 mmol/L (22-30); Chloride 110 mmol/L (98-107); Glucose 105 mg/dL (74-99); Non-African American GFR(CKD) >90 (>60 ml/min/1.73 sqM); Potassium 4.1 mmol/L (3.5-5.1); Sodium 136 mmol/L (137-145); Total Bilirubin 0.9 mg/dL (0.2-1.3); Total Protein 5.8 g/dL (6.3-8.2)
--- NOTE | 2020-06-13 10:49 | P.DS ---
Providers Date of admission: 06/11/20 21:35 Expected date of discharge: 06/13/20 Attending physician: Zully Watkins Consults: 06/11/20 21:50 Consult Physician Routine Consulting Provider: [facility] Consult Reason/Comments: [facility] Do you want consulting provider notified?: Yes Primary care physician: Doug Webber Hospital Course: 35-year-old female who presented to the emergency room with chief complaint of abdominal pain. Patient was found to have acute appendicitis. She underwent robotic-assisted laparoscopic appendectomy with Dr. Watkins. Patient is doing well postoperatively without any immediate complications. She is tolerating diet without nausea or vomiting. Pain is controlled on oral medications. Vital signs are stable. She is stable for discharge home today. Please see EMR for further hospital course details. Discharge Diagnosis 1. Acute appendicitis with periappendicitis without rupture Nurse practitioner note has been reviewed by physician. Signing provider agrees with the documented findings, assessment, and plan of care. Patient Condition at Discharge: Good Plan - Discharge Summary Discharge Rx Participant: Yes New Discharge Prescriptions: New Acetaminophen Tab [Tylenol Tab] 650 mg PO Q4H PRN #30 tablet PRN Reason: Pain Discharge Medication List Acetaminophen Tab [Tylenol Tab] 650 mg PO Q4H PRN #30 tablet 06/13/20 [Rx] Follow up Appointment(s)/Referral(s): Doug Webber DO [Primary Care Provider] - 1-2 days Zully Watkins MD [STAFF PHYSICIAN] - 06/20/20 Activity/Diet/Wound Care/Special Instructions: No lifting over 10 pounds You may shower. No soaking or tub baths Very light activity until you are reevaluated at your follow up appointment with your surgeon
[2020-06-13 16:41] VITALS: BP 113/72; PULSE 62; TEMP 98.4
--- NOTE | 2020-06-13 18:42 | P.PN ---
Progress Note - Text Progress Note Date: 06/13/20 All questions addressed. Nausea resolved. She feels well and is eager to go home as [birth year]. She complains of tissue at the back of her throat from surgery. No back pain. Appropriate incisional mild tenderness. She is afebrile. She has a 3 month old for which lifting precautions were addressed. MRI advised to hold for 6 weeks for safety after recent appendectomy. Vital signs stable. Stable for discharge.
== END 2020-06-13 19:07 | disposition home or self-care (01) | DRG 343 ==
LOC: EC 19:10 → 6PED 21:35 → INTOOBSV 21:35 → OBSVTOIN 21:35 → 6PED 23:07
PROVIDERS: ADMIT Surgery Plastic and Reconstructive Surgery; ATTEND Surgery Plastic and Reconstructive Surgery
PROC: 8E0W4CZ Robotic Assisted Procedure of Trunk Region, Percutaneous Endoscopic Approach (ICD-10-PCS; principal; 2020-06-12 09:00)
PROC: 0DTJ4ZZ Resection of Appendix, Percutaneous Endoscopic Approach (ICD-10-PCS; principal; 2020-06-12 09:00)
DX: K35.80 Unspecified acute appendicitis (principal); D72.829 Elevated white blood cell count, unspecified; R51 Headache; R11.0 Nausea; Z11.59 Encounter for screening for other viral diseases; Z88.1 Allergy status to other antibiotic agents; Z88.0 Allergy status to penicillin; Z82.0 Family history of epilepsy and other diseases of the nervous system; Z82.49 Family history of ischemic heart disease and other diseases of the circulatory system
CPT/HCPCS: 36415; 74177; 80048; 80053; 81001; 81025; 83690; 83735; 85025; 87040; 87070; 87075; 87205; 88304; 96360; 96361; 96372; 99285

== ENCOUNTER → 2021-08-01 | Outpatient (CLI) | payer BC ==
--- NOTE | 2021-08-01 09:58 | CT ---
EXAMINATION TYPE: CT sinus wo con DATE OF EXAM: 08/01/2021 COMPARISON: NONE HISTORY: Chronic sinusitis; facial pain and swelling for years. CT DLP: 596.5 mGycm. Automated Exposure Control for Dose Reduction was Utilized. TECHNIQUE: CT scan of the sinuses is performed without contrast, axial images are obtained, coronal r eformatted images are also reviewed. FINDINGS: Mild mucosal in the inferior maxillary sinuses with slight lobulation. Remainder paranasal sinuses are clear without suspicious opacification or air-fluid levels The ostiomeatal complex is pat ent on the right on coronal image 15. There is antral mucous retention cyst or polyps occluding, and left coronal image 16. Nasal septum is deviated to left of midline. Visualized portion of mastoid air cells show no abnormal opacification. The globes are intact bilate rally. Visualized portion of brain parenchyma is unremarkable. IMPRESSION: Chronic inferior maxillary sinus disease. No acute sinusitis. Occluded left ostiomeatal complex noted.
== END | disposition home or self-care (01) ==
LOC: RADCTMAIN 09:27
PROVIDERS: ATTEND Otolaryngology
DX: J32.0 Chronic maxillary sinusitis (principal)
CPT/HCPCS: 70486